=== PATIENT | female | born 1985 | race Caucasian/White ===

== ENCOUNTER 2024-01-02 10:15 | Emergency (ER) | payer OTHER ==
[~2024-01-02] VITALS: Ht 175.3 cm; Wt 83.9 kg
[2024-01-02 13:27] VITALS: BP 145/90; TEMP 98; O2SAT 99
== END 2024-01-02 13:28 | disposition home or self-care (01) ==
LOC: ER 10:15
DX: S16.1XXA Strain of muscle, fascia and tendon at neck level, initial encounter (principal); S20.219A Contusion of unspecified front wall of thorax, initial encounter; F07.81 Postconcussional syndrome; Z88.2 Allergy status to sulfonamides; Z91.040 Latex allergy status; V89.2XXA Person injured in unspecified motor-vehicle accident, traffic, initial encounter; Y93.89 Activity, other specified; Y92.89 Other specified places as the place of occurrence of the external cause; Y99.8 Other external cause status
CPT/HCPCS: 70450; 71045; 72125; 73030; 73590; A4606; A4663

== ENCOUNTER 2024-09-13 08:36 | Emergency (ER) | payer OTHER ==
[~2024-09-13] VITALS: Ht 175.3 cm; Wt 86.2 kg
[~2024-09-13 08:36] MED LIST: DOXY100T2 PO; PRED15SO24 PO
[2024-09-13 09:53] VITALS: BP 129/81; O2SAT 99
== END 2024-09-13 09:53 | disposition home or self-care (01) ==
LOC: ER 08:44
DX: S93.622A Sprain of tarsometatarsal ligament of left foot, initial encounter (principal); Z88.2 Allergy status to sulfonamides; Z88.8 Allergy status to other drugs, medicaments and biological substances; Z91.041 Radiographic dye allergy status; Y30.XXXA Falling, jumping or pushed from a high place, undetermined intent, initial encounter; Y93.89 Activity, other specified; Y92.89 Other specified places as the place of occurrence of the external cause; Y99.8 Other external cause status
CPT/HCPCS: 73630; A4606; A4663